=== PATIENT | female | born 1990 | race Caucasian/White ===

== ENCOUNTER 2020-02-12 09:51 | Emergency (ER) | payer MEDICAID, OTHER ==
[2020-02-12] MEDS ORDERED: HYDROCODONE/ACETAMINOPHEN 10/325 MG TAB ONE (10:05)
== END 2020-02-12 11:07 | disposition home or self-care (01) ==
LOC: EDH 09:51
DX: S43.101A Unspecified dislocation of right acromioclavicular joint, initial encounter (principal); W10.8XXA Fall (on) (from) other stairs and steps, initial encounter; Y93.89 Activity, other specified; Y92.89 Other specified places as the place of occurrence of the external cause; Y99.8 Other external cause status
CPT/HCPCS: 73030